=== PATIENT | male | born 1965 | race Asian ===

== ENCOUNTER 2017-09-20 10:48 | Inpatient (IN) | payer BC ==
[~2017-09-20] VITALS: Ht 165.1 cm; Wt 64.9 kg
[2017-09-20 10:56] VITALS: BP_SYST 90
[2017-09-20] MEDS ORDERED: ONDANSETRON HCL 4 MG/2 ML VIAL IVP ONE (11:15)
[2017-09-20] MEDS ORDERED: NACL 0.9% 1,000 ML IV ONE (11:15)
[2017-09-20] MEDS ORDERED: MORPHINE 4 MG/ML INJ. SYRINGE IVP ONE (11:15)
[2017-09-20 11:32] LABS: BASOPHILS # (AUTO) 0.1 K/uL (0.0-0.2); BASOPHILS % (AUTO) 0.9 % (0.0-2.0); EOSINOPHILS % (AUTO) 0.1 % (0.0-4.0); HEMATOCRIT 47.7 % (36-54); HEMOGLOBIN 16.4 g/dL (14.0-18.0); LYMPHOCYTES % (AUTO) 6.1 % (20.5-51.5); MEAN CORPUSCULAR HEMOGLOBIN 30 pg (27-31); MEAN CORPUSCULAR HGB CONC 34 % (32-36); MEAN CORPUSCULAR VOLUME 89 fL (79.0-98.0); MONOCYTES # (AUTO) 0.6 K/uL (0.0-1.0); MONOCYTES % (AUTO) 3.7 % (1.7-9.3); NEUTROPHILS # (AUTO) 14.8 K/uL (1.8-7.7); NEUTROPHILS % (AUTO) 89.2 % (40.0-70.0); PLATELET COUNT (AUTO) 147 K/uL (130-430); RED BLOOD CELL COUNT(AUTO) 5.39 MIL/uL (4.2-6.2); RED CELL DISTRIBUTION WIDTH 12.2 % (9.0-15.0); WHITE BLOOD COUNT (AUTO) 16.5 K/uL (4.8-10.8)
[2017-09-20 11:45] LABS: CALCIUM 8.3 mg/dL (8.4-11.0); CREATININE 0.89 mg/dL (0.55-1.30); POTASSIUM 3.2 mmol/L (3.5-5.1)
[2017-09-20 11:50] LABS: ALBUMIN 3.7 g/dL (3.4-4.8)
[2017-09-20 11:52] LABS: INR 1.1 (0.80-1.20); PROTHROMBIN TIME 10.7 SECS (9.5-12.5)
[2017-09-20 12:21] VITALS: BP_SYST 112
[2017-09-20] MEDS ORDERED: POTASSIUM CHLORIDE 20 MEQ/PKT PACKET PO ONE (13:45)
[2017-09-20] MEDS: metroNIDAZOLE 500 mg/NS 100 ML IV SCH ×2 (16:07→21:44)
[2017-09-20 20:00] VITALS: BP_SYST 95
[2017-09-20] MEDS ORDERED: ONDANSETRON HCL 4 MG/2 ML VIAL IVP PRN (20:15)
[2017-09-20] MEDS ORDERED: MORPHINE 4 MG/ML INJ. SYRINGE IVP PRN (20:15)
[2017-09-20] MEDS ORDERED: HYDROcodone/ACETAMIN 10-325 MG TAB PO PRN ×2 (20:15)
[2017-09-20] MEDS ORDERED: TEMAZEPAM 15 MG CAPSULE PO PRN (20:45)
[2017-09-20] MEDS ORDERED: ACETAMINOPHEN 325 MG TABLET PO PRN (20:45)
[2017-09-21 00:44] VITALS: BP_SYST 92
[2017-09-21] MEDS: metroNIDAZOLE 500 mg/NS 100 ML IV SCH ×2 (05:48→22:30)
[2017-09-21 07:19] LABS: EOSINOPHILS # (AUTO) 0.2 K/uL (0.0-0.4); MONOCYTES # (AUTO) 0.7 K/uL (0.0-1.0); NEUTROPHILS # (AUTO) 5.5 K/uL (1.8-7.7)
[2017-09-21 07:31] LABS: BASOPHILS % (AUTO) 0.4 % (0.0-2.0); EOSINOPHILS % (AUTO) 1.8 % (0.0-4.0); HEMATOCRIT 43.2 % (36-54); HEMOGLOBIN 14.6 g/dL (14.0-18.0); LYMPHOCYTES % (AUTO) 23.8 % (20.5-51.5); MEAN CORPUSCULAR HEMOGLOBIN 30 pg (27-31); MEAN CORPUSCULAR HGB CONC 34 % (32-36); MEAN CORPUSCULAR VOLUME 89 fL (79.0-98.0); MONOCYTES % (AUTO) 8.8 % (1.7-9.3); NEUTROPHILS % (AUTO) 65.2 % (40.0-70.0); PLATELET COUNT (AUTO) 135 K/uL (130-430); RED BLOOD CELL COUNT(AUTO) 4.84 MIL/uL (4.2-6.2); RED CELL DISTRIBUTION WIDTH 12.6 % (9.0-15.0); WHITE BLOOD COUNT (AUTO) 8.4 K/uL (4.8-10.8)
[2017-09-21 07:55] LABS: ALBUMIN 2.9 g/dL (3.4-4.8); CALCIUM 8.4 mg/dL (8.4-11.0); CREATININE 1.02 mg/dL (0.55-1.30); POTASSIUM 3.4 mmol/L (3.5-5.1); TOTAL BILIRUBIN 0.9 mg/dL (0.0-1.0)
[2017-09-21 08:00] VITALS: BP_SYST 115
[2017-09-21] MEDS ORDERED: LEVOFLOXACIN 500 MG TABLET PO SCH (10:00)
[2017-09-21 12:41] VITALS: BP_SYST 96
[2017-09-21 16:26] VITALS: BP_SYST 115
[2017-09-21] MEDS ORDERED: POTASSIUM CHLORIDE 20 MEQ TAB.PRT.SR PO ONE (17:45)
[2017-09-21] MEDS ORDERED: LEVOFLOXACIN 500 MG/D5W 100 ML IV SCH (18:00)
[2017-09-21 20:00] VITALS: BP_SYST 111
[2017-09-21] MEDS: MAGNESIUM OXIDE 400 MG TABLET PO SCH (20:41)
[2017-09-21] MEDS ORDERED: metroNIDAZOLE 500 mg/NS 100 ML IV SCH (21:00)
[2017-09-22 01:17] VITALS: BP_SYST 100
[2017-09-22] MEDS: metroNIDAZOLE 500 mg/NS 100 ML IV SCH ×2 (06:34→14:14)
[2017-09-22 08:20] VITALS: BP_SYST 112
[2017-09-22] MEDS: MAGNESIUM OXIDE 400 MG TABLET PO SCH (09:58)
[2017-09-22 12:31] VITALS: BP_SYST 132
[2017-09-22 16:02] VITALS: BP_SYST 130
[2017-09-24 17:06] LABS: HEPATITIS A AB, IgM Negative (Negative); HEPATITIS B CORE AB, IgM Negative (Negative)
[2017-09-25 10:09] LABS: ANTI-SMOOTH MUSCLE AB 8 Units (0-19)
[2017-09-25 10:29] LABS: HEPATITIS B SURFACE AG Positive (Negative)
[2017-09-25 17:10] LABS: ANTI NUCLEAR AB WITH REFLEX Negative (Negative)
== END 2017-09-22 16:55 | disposition home or self-care (01) | DRG 392 ==
LOC: SED 10:48 → SMU 11:56
PROVIDERS: ADMIT Internal Medicine; ATTEND Internal Medicine
DX: K57.92 Diverticulitis of intestine, part unspecified, without perforation or abscess without bleeding (principal); K74.60 Unspecified cirrhosis of liver; K51.50 Left sided colitis without complications; A09 Infectious gastroenteritis and colitis, unspecified; K21.9 Gastro-esophageal reflux disease without esophagitis
CPT/HCPCS: 36415; 71045; 80053; 80074; 82272; 83516; 83605; 84484; 85025; 85610-TC; 85730-TC; 86038; 87040-TC; 93005; 96361; 96374; 96375; 99285; J1956; J2270; J2405; J3490; J7030